=== PATIENT | female | born 2000 | race Caucasian/White ===

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

== ENCOUNTER → 2023-06-28 | Outpatient (CLI) | payer MEDICAID, SELFPAY ==
--- OUTSIDE RECORDS SUMMARY | 2023-06-28 09:06 | XMS RPT_ITS | CCD ---
Author Name Unknown Address [facility] [address] [place] [address] Organization [facility] Care Team Providers Care Knot Bumper Name Role Phone JARROD ALMANZA Unavailable Unavailable JARROD ALMANZA Unavailable Unavailable JARROD LEE Unavailable Unavailable GERSON MCGRAW Unavailable Unavailable JARROD ALMANZA Unavailable Unavailable JARROD ALMANZA Unavailable Unavailable Jarrod Almanza MD Primary Care Provider [phone] JARROD ALMANZA Primary Care Unavailable Medications Current Medications Medication Drug Class(es) Dates Sig (Normalized) Sig (Original) predniSONE 20 mg oral tablet (1 source) Start: 06-17-2023 End: 06-22-2023 take 2 tablets by mouth once daily predniSONE (DELTASONE) 20 mg tablet Indications: Sore throat Take 2 tablets by mouth once daily for 5 days. 10 tablet 0 06/17/2023 06/22/2023 Active Completed/Discontinued Medications Medication Drug Class(es) Dates Sig (Normalized) Sig (Original) brompheniramine maleate 0.4 mg/ml / dextromethorphan hydrobromide 2 mg/ml / pseudoephedrine hydrochloride 6 mg/ml oral solution (1 source) alpha-Adrenergic Agonist, Uncompetitive N-piakri-G-aspartat e Receptor Antagonist, Sigma-1 Agonist Start: 04-23-2019 take 10 mL by mouth every six hours as needed Brompheniramine -Pseudoeph-DM (BROMFED DM) 2-30-10 mg/5 mL syrup Take 10 mL by mouth four times daily as needed. 200 mL 0 04/23/2019 Active Problems Problem Classification Problem Date Documented Da te Episodic/Chronic Mood disorders (1 source) Mild depression; Translations: [Mild depression] Onset: 05-01-2017 05-01-2017 Chronic Other upper respiratory infections (1 source) Sore throat symptom; Translations: [Acute pharyngitis, unspecified] 06-17-2023 Episodic Results Test Name Value Interpretation Reference Range Facil ity Vital Signs Date Time Vital Sign Value Performing Clinician Chirag jamison 06-17-2023 09:09-0500 Body temperature 98.2 [degF] Kolby Calderon APRN.CNP Work Phone: [facility] 06-17-2023 09:09-0500 Body weight 97.52 kg Kolby Calderon APRN.[employer] Work Phone: [facility] 06-17-2023 09:09-0500 Diastolic blood pressure 70 mm[Hg] Kolby Calderon APRN.[employer] Work Phone: [facility] 06-17-2023 09:09-0500 Heart rate 100 /min Kolby Calderon APRN.[employer] Work Phone: [facility] 06-17-2023 09:09-0500 Respiratory rate 16 /min Kolby Calderon APRN.[employer] Work Phone: [facility] 06-17-2023 09:09-0500 SaO2% (BldA) [Mass fraction] 98 % Kolby Calderon APRN.[employer] Work Phone: [facility] 06-17-2023 09:09-0500 Systolic blood pressure 108 mm[Hg] Kolby Calderon APRN.[employer] Work Phone: [facility] Encounters Encounter Date Encounter Type Care Provider Facility Start: 06-17-2023 End: 06-17-2023 ambulatory [facility] Facility:[facility] Start: 06-17-2023 End: 06-17-2023 Patient encounter procedure Kolby Calderon APRN.[employer] Work Phone: [facility] Procedures Date Procedure Procedure Detail Performing Clinician Start: 06-17-2023 STREP A MOLECULAR (POC) [facility] Provider Plan of Treatment Date Care Activity Detail Author Start: 12-04-2023 Urine microalbumin profile DTa P,Tdap,Td Vaccine (7 - Td or Tdap) [facility] Start: 12-28-2022 Influenza vaccination Influenza Vacc ine (#1) [facility] Start: 2021 Screening for malign ant neoplasm of cervix Pap Testing [facility] Start: 06-23-2019 HPV Vaccine (2 - 3-d ose series) HPV Vaccine (2 - 3-dose series) [facility] Start: 2018 GC (Gonorrhea) Scree brittani (18-24) GC (Gonorrhea) Screening (18-24) [facility] Start: 2018 Hepatitis C screening Hepatitis C Sc reening [facility] Start: 2018 HIV screening HIV Screening [facility] Start: 2018 Screening for Chlamy bree trachomatis Chlamydia Screening () [facility] Start: 2016 Meningococcal B Vacc ine: Consider Based On Risk (1 of 2 - Patient Seeks Protection) Meningococcal B Vaccine: Consider Based On Risk (1 of 2 - Patient Seeks Protection) [facility] Start: 2014 Peds To Adult Transi tion Annual Assessment Peds To Adult Transition Annual Assessment [facility] Start: 2012 Peds To Adult Transi tion Initial Discussion Peds To Adult Transition Initial Discussion [facility] Start: 03-04-2001 Covid-19 Vaccine (#1) Covid-19 Vacci ne (#1) [facility] Immunizations Immunization Date Immunization Notes Care Provider Brittany nowak 05-26-2019 Human Papillomavirus 9-valent vaccine Kolby Calderon APRN.[employer] Work Phone: [facility] 05-01-2017 meningococcal polysaccharide (groups A, C, Y and W-135) diphtheria toxoid conjugate vaccine (MCV4P) Kolby Calderon APRN.[employer] Work Phone: [facility] 12-03-2013 meningococcal polysaccharide (groups A, C, Y and W-135) diphtheria toxoid conjugate vaccine (MCV4P) Kolby Calderon APRN.[employer] Work Phone: [facility] 12-03-2013 tetanus toxoid, redu carlo diphtheria toxoid, and acellular pertussis vaccine, adsorbed Kolby Calderon APRN.[employer] Work Phone: [facility] 12-03-2013 varicella virus vaccine Colin Calderon APRN.[employer] Work Phone: [facility] 12-04-2005 diphtheria, tetanus toxoids and acellular pertussis vaccine Kolby Calderon FLOORWORKER.[employer] Work Phone: [facility] 12-04-2005 measles, mumps and rubella virus vaccine Kolby Calderon FLOORWORKER.[employer] Work Phone: [facility] 12-04-2005 poliovirus vaccine, inactivated Kolby Calderon FLOORWORKER.[employer] Work Phone: [facility] 01-06-2003 pneumococcal Conjuga te, unspecified formulation Kolby Kvng FLOORWORKER.[employer] Work Phone: [facility] 01-13-2002 diphtheria, tetanus toxoids and acellular pertussis vaccine Kolby Calderon FLOORWORKER.[employer] Work Phone: [facility] 01-13-2002 haemophilus influenz ae type b vaccine, HbOC conjugate Kolby Calderon FLOORWORKER.[employer] Work Phone: [facility] 09-09-2001 measles, mumps and rubella virus vaccine Kolby Calderon FLOORWORKER.[employer] Work Phone: [facility] 09-09-2001 varicella virus vaccine Colin Calderon FLOORWORKER.[employer] Work Phone: [facility] 06-05-2001 poliovirus vaccine, inactivated Kolby Calderon FLOORWORKER.[employer] Work Phone: [facility] 03-25-2001 diphtheria, tetanus toxoids and acellular pertussis vaccine Kolby Calderon FLOORWORKER.[employer] Work Phone: [facility] 03-25-2001 haemophilus influenz ae type b vaccine, HbOC conjugate Kolby Calderon FLOORWORKER.[employer] Work Phone: [facility] 03-25-2001 hepatitis B vaccine, pediatric or pediatric/adolescent dosage Kolby Kvng FLOORWORKER.[employer] Work Phone: [facility] 01-16-2001 diphtheria, tetanus toxoids and acellular pertussis vaccine Kolby Kvng FLOORWORKER.[employer] Work Phone: [facility] 01-16-2001 haemophilus influenz ae type b vaccine, HbOC conjugate Kolby Kvng FLOORWORKER.[employer] Work Phone: [facility] 01-16-2001 poliovirus vaccine, inactivated Kolby Calderon FLOORWORKER.[employer] Work Phone: [facility] 2000 diphtheria, tetanus toxoids and acellular pertussis vaccine Kolby Calderon FLOORWORKER.[employer] Work Phone: [facility] 2000 haemophilus influenz ae type b vaccine, HbOC conjugate Kolby Calderon FLOORWORKER.[employer] Work Phone: [facility] 2000 poliovirus vaccine, inactivated Kolby Calderon FLOORWORKER.[employer] Work Phone: [facility] 2000 hepatitis B vaccine, pediatric or pediatric/adolescent dosage Kolby Kvng FLOORWORKER.[employer] Work Phone: [facility] 2000 hepatitis B vaccine, pediatric or pediatric/adolescent dosage Kolby Calderon FLOORWORKER.[employer] Work Phone: [facility] Payers Date Payer Category Payer Medicaid [facility] MEDIC AID [facility] MEDICAID [id number] 2022-Present [phone] [address] [place] [address] Medicaid [id number] 2022 Medicaid [id number] Unknown [id number] Social History Date Type Detail Facility Start: [facility] Work Phone: History of tobacco use Passive smoker 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 Author Type: Nurse Practitioner Type: Progress Notes Filed: 06/17/2023 09:31 Note Text: Subjective HPI HPI Lennie Talavera is a 22 year old female who presents today for CC of sore throat, fever, body aches. This started 4 days ago. Has tried otc medication for relief. Symptoms are worsened by nothing. Risk factors sick exposures at work. Denies cough. Denies possibility of being . .Patient presents with: Sore Throat: headache, bodyaches, fever x 4 days PAST MEDICAL HISTORY Diagnosis Date Menarche 12/08 PMH - PAST MEDICAL HISTORY OF 2001 RSV PMH - PAST MEDICAL HISTORY OF 12/04/2005 normal color vision PAST SURGICAL HISTORY Procedure Laterality Date NONE ALLERGIES Patient has no known allergies. MEDICATIONS ibuprofen (MOTRIN) 400 mg tablet Take 400 mg by mouth every 6 hours as needed. melatonin 3 mg Take 1 tablet by mouth daily at bedtime. Acsnbmynejponmh-Wpuccdvlq-UU (BROMFED DM) 2-30-10 mg/5 mL syrup Take 10 mL by mouth four times daily as needed. (Patient not taking: Reported on 05/26/2019 ) FAMILY HISTORY Problem Relation Age of Onset Breast Cancer Maternal Grandmother Social History Tobacco Use Smoking status: Never Passive exposure: Yes Smokeless tobacco: Never Tobacco comments: smokers outside Substance Use Topics Alcohol use: No Drug use: No Review of Systems Constitutional: Positive for chills, fever and malaise/fatigue. HENT: Positive for sore throat. Negative for congestion, ear pain and nosebleeds. Respiratory: Negative for cough, shortness of breath and wheezing. Musculoskeletal: Negative for neck pain. Skin: Negative for itching and rash. Objective Blood pressure 108/70, pulse 100, temperature 36.8 ?C (98.2 ?F), resp. rate 16, weight 97.5 kg (215 lb), last menstrual period 03/23/2019, SpO2 98%. Physical Exam Constitutional: General: She is not in acute distress. Appearance: Normal appearance. She is not toxic-appearing or diaphoretic. HENT: Head: Normocephalic and atraumatic. Nose: Nose normal. Mouth/Throat: Lips: [place]. Mouth: Mucous membranes are moist. Pharynx: Uvula midline. Oropharyngeal exudate and posterior oropharyngeal erythema present. No pharyngeal swelling or uvula swelling. Tonsils: Tonsillar exudate present. 3+ on the right. 3+ on the left. Eyes: General: Lids are normal. No scleral icterus. Right eye: No discharge. Left eye: No discharge. Conjunctiva/sclera: Conjunctivae normal. Pupils: Pupils are equal, round, and reactive to light. Neck: Trachea: Trachea normal. Cardiovascular: Rate and Rhythm: Normal rate and regular rhythm. Heart sounds: Normal heart sounds. Pulmonary: Effort: Pulmonary effort is normal. Breath sounds: Normal breath sounds. Abdominal: General: Bowel sounds are normal. Palpations: Abdomen is soft. There is no hepatomegaly or splenomegaly. Tenderness: There is no abdominal tenderness. Musculoskeletal: Cervical back: Normal range of motion and neck supple. Lymphadenopathy: Cervical: Cervical adenopathy present. Right cervical: Superficial cervical adenopathy present. Left cervical: Superficial cervical adenopathy present. Skin: General: Skin is warm and dry. Findings: No rash. Neurological: Mental Status: She is alert and oriented to person, place, and time. ASSESSMENT/PLAN: 1. Sore throat - ICD9: 462, ICD10: J02.9 - suspect viral, if s/s persist 4-5 days return for mono testing. - Group A strep molecular testing negative - Discussed supportive care treatment with fluids, rest and analgesia. - The patient should follow up in 3-5 days if symptoms persist or worsen - PREDNISONE 20 MG TABLET - LIDOCAINE HCL 2 % MUCOSAL SOLUTION Kolby Calderon APRN.DENA [facility] History of Present illness Narrative 06-17-2023 Kolby Calderon APRN.DENA - 06/17/2023 9:14 AM EST Note Date & Type Note Facility 06-17-2023 History of Presen t illness Narrative Subjective HPI HPI Lennie Talavera is a 22 year old female who presents today for CC of sore throat, fever, body aches. This started 4 days ago. Has tried otc medication for relief. Symptoms are worsened by nothing. Risk factors sick exposures at work. Denies cough. Denies possibility of being . .Patient presents with: Sore Throat: headache, bodyaches, fever x 4 days PAST MEDICAL HISTORY Diagnosis Date Menarche 12/08 PMH - PAST MEDICAL HISTORY OF 2001 PMH - PAST MEDICAL HISTORY OF 12/04/2005 normal color vision PAST SURGICAL HISTORY Procedure Laterality Date NONE ALLERGIES Patient has no known allergies. MEDICATIONS ibuprofen (MOTRIN) 400 mg tablet Take 400 mg by mouth every 6 hours as needed. melatonin 3 mg Take 1 tablet by mouth daily at bedtime. Knxtcpunvjcdxzp-Zkirinibf-LD (BROMFED DM) 2-30-10 mg/5 mL syrup Take 10 mL by mouth four times daily as needed. (Patient not taking: Reported on 05/26/2019 ) FAMILY HISTORY Problem Relation Age of Onset Breast Cancer Maternal Grandmother Social History Tobacco Use Smoking status: Never Passive exposure: Yes Smokeless tobacco: Never Tobacco comments: smokers outside Substance Use Topics Alcohol use: No Drug use: No Review of Systems Constitutional: Positive for chills, fever and malaise/fatigue. HENT: Positive for sore throat. Negative for congestion, ear pain and nosebleeds. Respiratory: Negative for cough, shortness of breath and wheezing. Musculoskeletal: Negative for neck pain. Skin: Negative for itching and rash. Objective Blood pressure 108/70, pulse 100, temperature 36.8 C (98.2 F), resp. rate 16, weight 97.5 kg (215 lb), last menstrual period 03/23/2019, SpO2 98%. Physical Exam Constitutional: General: She is not in acute distress. Appearance: Normal appearance. She is not toxic-appearing or diaphoretic. HENT: Head: Normocephalic and atraumatic. Nose: Nose normal. Mouth/Throat: Lips: [place]. Mouth: Mucous membranes are moist. Pharynx: Uvula midline. Oropharyngeal exudate and posterior oropharyngeal erythema present. No pharyngeal swelling or uvula swelling. Tonsils: Tonsillar exudate present. 3+ on the right. 3+ on the left. Eyes: General: Lids are normal. No scleral icterus. Right eye: No discharge. Left eye: No discharge. Conjunctiva/sclera: Conjunctivae normal. Pupils: Pupils are equal, round, and reactive to light. Neck: Trachea: Trachea normal. Cardiovascular: Rate and Rhythm: Normal rate and regular rhythm. Heart sounds: Normal heart sounds. Pulmonary: Effort: Pulmonary effort is normal. Breath sounds: Normal breath sounds. Abdominal: General: Bowel sounds are normal. Palpations: Abdomen is soft. There is no hepatomegaly or splenomegaly. Tenderness: There is no abdominal tenderness. Musculoskeletal: Cervical back: Normal range of motion and neck supple. Lymphadenopathy: Cervical: Cervical adenopathy present. Right cervical: Superficial cervical adenopathy present. Left cervical: Superficial cervical adenopathy present. Skin: General: Skin is warm and dry. Findings: No rash. Neurological: Mental Status: She is alert and oriented to person, place, and time. ASSESSMENT/PLAN: 1. Sore throat - ICD9: 462, ICD10: J02.9 - suspect viral, if s/s persist 4-5 days return for mono testing. - Group A strep molecular testing negative - Discussed supportive care treatment with fluids, rest and analgesia. - The patient should follow up in 3-5 days if symptoms persist or worsen - PREDNISONE 20 MG TABLET - LIDOCAINE HCL 2 % MUCOSAL SOLUTION Kolby Calderon APRN.DENA documented in this encounter [facility] Evaluation note Note Date & Type Note Facility documented in this encounter [facility] Summary Purpose Family History No Family History Records FoundNo Family History Records Found Advance Directives No Advanced Directives Records FoundNo Advanced Directives Records Found Additional Source Comments INFORMATION SOURCE (unrecogn ized section and content) DATE CREATED AUTHOR AUTHOR'S ORGANIZ ATION 06/17/2023 [facility] Source Comments (unrecognize d section and content) In the event this informatio n is protected by the Federal Confidentiality of Alcohol and Drug Abuse Patient Records regulations: The Federal rules restrict any use of the information to criminally investigate or prosecute any alcohol or drug abuse patient.[facility] Reason for Visit (unrecogniz ed section and content) Care Teams (unrecognized sec tion and content) FOR RECORDS PERTAINING TO PATIENTS WHO ARE OR HAVE BEEN ENROLLED IN A CHEMICAL DEPENDENCY/SUBSTANCEABUSE PROGRAM, SOME INFORMATION MAY BE OMITTED. This clinical summary was aggregated from multiple sources. Caution should be exercised in using it in the provision of clinical care. This summary normalizes information from multiple sources, and as a consequence, information in this document may materially change the coding, format and clinical context of patient data. In addition, data may be omitted in some cases. CLINICAL DECISIONS SHOULD BE BASED ON THE PRIMARY CLINICAL RECORDS. [facility]. provides no warranty or guarantee of the accuracy or completeness of information in this document.
[2023-06-28 12:22] LABS: Absolute Lymphocyte Count 2.11 X10^3/uL (0.83-4.51); Absolute Neutrophil Count 7.1 X10^3/uL (2.0-7.7); Basophil# 0.03 X10^3/uL; Basophil% 0.3 % (0-1); Eosinophil# 0.08 X10^3/uL; Eosinophils% 0.8 % (0-5); Hematocrit 43.8 % (37-47); Hemoglobin 14.1 g/dL (12.0-15.0); Lymphocyte # 2.11 X10^3/ul (0.83-4.51); Lymphocyte % 20.7 % (19-41); Mean Corp Hgb Conc 32.2 g/dL (32-36); Mean Corpuscular Hgb 26.4 pg (27.0-32.0); Mean Corpuscular Volume 81.9 fL (81-99); Mean Platelet Vol. 10.5 fl (6.2-12.0); Monocyte# 0.87 X10^3/uL; Monocyte% 8.5 % (0-10); NRBC Flagged by Analyzer 0 % (0-5); Neutrophil # 7.05 X10^3/uL (2.7-7.7); Neutrophil % 69.2 % (47-70); Platelet Count 274 K/mm3 (150-450); RBC Distribution Width CV 14.5 % (11.6-14.6); RBC Distribution Width SD 42.6 fl (35.1-43.9); Red Blood Count 5.35 M/mm3 (4.2-5.4); White Blood Count 10.2 K/mm3 (4.4-11.0)
[2023-06-28 12:34] LABS: ALB/GLOB Ratio 1.1 RATIO (0.9-2.4); AST(SGOT) 10 U/L (15-37); Alanine Aminotransfer ALT/SGPT 22 U/L (13-56); Albumin, Serum 3.7 g/dL (3.2-5.0); Alkaline Phosphatase 48 U/L (45-117); Anion Gap 6 (5-15); BUN 11 mg/dL (7-18); BUN/Creat Ratio 14.3 RATIO (10-20); Calcium,Total 8.8 mg/dL (8.5-10.1); Chloride 109 mmol/L (98-107); Cholesterol 129 mg/dL (200); Creatinine, Serum 0.77 mg/dL (0.55-1.02); EST Glomerular Filtration Rate 99 mL/min (>60); Est Glom Filt Rate - Afr Amer 120 mL/min (>60); Ferritin 21 ng/mL (8-252); Globulin 3.5 g/dL (2.2-4.2); Glucose 97 mg/dL (74-106); High Density Lipoprotein 47 mg/dL; Iron 29 ug/dL (50-170); Iron Binding Capacity,Total 323 ug/dL (250-450); Potassium 3.9 mmol/L (3.5-5.1); Protein, Total 7.2 g/dL (6.4-8.2); Sodium Level 139 mmol/L (136-145); Triglycerides 76 mg/dL; Very Low Density Lipoprotein 15 mg/dL (5-40)
== END | disposition home or self-care (01) ==
LOC: BIMLAB 08:43
PROVIDERS: PCP Nurse Practitioner; Visit Provider Nurse Practitioner
DX: Z00.00 Encounter for general adult medical examination without abnormal findings (principal); R53.83 Other fatigue
CPT/HCPCS: 36415; 80053; 80061; 82728; 83540; 83550; 85025

== ENCOUNTER → 2023-09-05 | Outpatient (CLI) | payer MEDICAID, SELFPAY ==
[2023-09-10 00:07] LABS: Chlamydia By Nucleic Acid AMP Negative (Negative); Gonococcus By Nucleic Acid AMP Negative (Negative)
[2023-09-11 18:19] LABS: HPV Reflexed? NOT INDICATED
== END | disposition home or self-care (01) ==
LOC: LABSPEC 12:57
PROVIDERS: PCP Nurse Practitioner; Referring Provider Nurse Practitioner Women's Health; Visit Provider Nurse Practitioner Women's Health
DX: Z12.4 Encounter for screening for malignant neoplasm of cervix (principal); Z11.3 Encounter for screening for infections with a predominantly sexual mode of transmission
CPT/HCPCS: 87491; 87591; 88175; G0145